=== PATIENT | male | born 1940 | race Caucasian/White ===

== ENCOUNTER 2018-10-27 09:05 | Outpatient (CLI) | payer MEDICARE, BC | END 2018-10-27 23:59 | disposition home or self-care (01) | LOC: CFH 09:05 | PROVIDERS: ATTEND Surgery | DX: Z01.818 Encounter for other preprocedural examination (principal); K44.9 Diaphragmatic hernia without obstruction or gangrene; E66.01 Morbid (severe) obesity due to excess calories | CPT/HCPCS: 74247 ==